=== PATIENT | male | born 1990 | race Hispanic/Latino ===

== ENCOUNTER 2018-09-22 10:39 | Emergency (ER) | payer BC ==
--- NOTE | 2018-09-22 11:39 | EDPHYS ---
Physician Documentation [facility] Name: Roly Retana Age: 27 yrs Sex: Male : 1990 Arrival Date: 09/22/2018 Time: 10:46 Bed 16 Private MD: ED Physician Nikolas Ye HPI: 09/22 11:34 This 27 yrs old Male presents to ER via EMS with complaints of Headache. kb 11:34 The patient complains of pain to the top of head. The patient describes the headache as kb throbbing. Onset: The symptoms/episode began/occurred this morning. Associated signs and symptoms: Pertinent positives: dizziness, Pertinent negatives: altered mental status, fever, malaise, nausea, neck stiffness, paresthesias, Photophobia rash, sinus congestion, sinus tenderness, vision changes, vision loss, vomiting, weakness, vertigo. Severity of symptoms: At its worst the pain was moderate, in the emergency department the pain has resolved, and did so earlier today. Headache History: The patient has had previous headaches and this one is similar to previous episodes. The symptoms are alleviated by sleep, the symptoms are aggravated by nothing. The patient has experienced similar episodes in the past, multiple times. The patient has not recently seen a physician. Pt reports he has headaches about once a month that go away with rest/sleep. Woke up with one this morning at 0600, called into work and told them he would be late. Slept a little longer and went into work at 0900 after symptoms resolved. Reports his boss asked him how he was feeling and he said fine, but they thought he said light-headed so they called the EMS and made him come to the ER because his blood pressure was high. Denies lightheadedness at any point. Reports all symptoms have resolved. . Historical: - Allergies: 10:50 No Known Allergies; sg - Home Meds: 10:50 None [Active]; sg - PMHx: 10:50 Hypertension; sg - PSHx: 10:50 None; sg - Immunization history:: Adult Immunizations up to date. - Social history:: Smoking status: Patient/guardian denies using tobacco. - Ebola Screening: : Patient negative for fever greater than or equal to 101.5 degrees Fahrenheit, and additional compatible Ebola Virus Disease symptoms Patient denies exposure to infectious person Patient denies travel to an Ebola-affected area in the 21 days before illness onset No symptoms or risks identified at this time. ROS: 11:33 Constitutional: Negative for fever, chills, and weight loss, ENT: Negative for injury, kb pain, and discharge, Neck: Negative for injury, pain, and swelling, Cardiovascular: Negative for chest pain, palpitations, and edema, Respiratory: Negative for shortness of breath, cough, wheezing, and pleuritic chest pain, Abdomen/GI: Negative for abdominal pain, nausea, vomiting, diarrhea, and constipation, Back: Negative for injury and pain, MS/Extremity: Negative for injury and deformity, Skin: Negative for injury, rash, and discoloration, Neuro: Negative for headache, weakness, numbness, tingling, and seizure. Exam: 11:33 Constitutional: This is a well developed, well nourished patient who is awake, alert, kb and in no acute distress. Head/Face: Normocephalic, atraumatic. Eyes: Pupils equal round and reactive to light, extra-ocular motions intact. Lids and lashes normal. Conjunctiva and sclera are non-icteric and not injected. Cornea within normal limits. Periorbital areas with no swelling, redness, or edema. ENT: Nares patent. No nasal discharge, no septal abnormalities noted. Tympanic membranes are normal and external auditory canals are clear. Oropharynx with no redness, swelling, or masses, exudates, or evidence of obstruction, uvula midline. Mucous membranes moist. Neck: Trachea midline, no thyromegaly or masses palpated, and no cervical lymphadenopathy. Supple, full range of motion without nuchal rigidity, or vertebral point tenderness. No Meningismus. Chest/axilla: Normal chest wall appearance and motion. Nontender with no deformity. No lesions are appreciated. Cardiovascular: Regular rate and rhythm with a normal S1 and S2. No gallops, murmurs, or rubs. Normal PMI, no JVD. No pulse deficits. Respiratory: Lungs have equal breath sounds bilaterally, clear to auscultation and percussion. No rales, rhonchi or wheezes noted. No increased work of breathing, no retractions or nasal flaring. Abdomen/GI: Soft, non-tender, with normal bowel sounds. No distension or tympany. No guarding or rebound. No evidence of tenderness throughout. Skin: Warm, dry with normal turgor. Normal color with no rashes, no lesions, and no evidence of cellulitis. MS/ Extremity: Pulses equal, no cyanosis. Neurovascular intact. Full, normal range of motion. Neuro: Awake and alert, GCS 15, oriented to person, place, time, and situation. Cranial nerves II-XII grossly intact. Motor strength 5/5 in all extremities. Sensory grossly intact. Cerebellar exam normal. Normal gait. Vital Signs: 10:48 BP 148 / 94; Pulse 69; Resp 17; Temp 97.4; Pulse Ox 98% on R/A; Pain 6/10; sg 11:23 BP 135 / 87; Pulse 64; Resp 18; Pulse Ox 98% on R/A; sg NIH Stroke Scale Scores: 11:33 NIHSS Score: 0 kb Felix Coma Score: 11:31 Eye Response: spontaneous(4). Verbal Response: oriented(5). Motor Response: obeys kb commands(6). Total: 15. MDM: 10:50 Patient medically screened. kb 11:31 Data reviewed: vital signs, nurses notes. Data interpreted: Pulse oximetry: on room air kb is 98 %. Interpretation: normal. Counseling: I had a detailed discussion with the patient and/or guardian regarding: the historical points, exam findings, and any diagnostic results supporting the discharge/admit diagnosis, the need for outpatient follow up, a family practitioner, to return to the emergency department if symptoms worsen or persist or if there are any questions or concerns that arise at home. 11:37 ED course: Educated to keep blood pressure log and follow up with PCP for possible kb hypertension. Also educated to follow up with neurology regarding frequent headaches. . Administered Medications: No medications were administered Disposition: 09/23 06:40 Co-signature as Attending Physician, Nikolas Ye MD I agree with the assessment and kdr plan of care. Disposition: 09/22/18 11:38 Discharged to Home. Impression: Headache. - Condition is Stable. - Discharge Instructions: General Headache Without Cause, [id number]. - Medication Reconciliation Form, Thank You Letter, Antibiotic Education, Prescription Opioid Use, Work release form form. - Follow up: Emergency Department; When: As needed; Reason: Worsening of condition. Follow up: Private Physician; When: 2 - 3 days; Reason: Recheck today's complaints, Continuance of care, Re-evaluation by your physician. NIH Stroke Scale - NIH Stroke Score Date: 09/22/2018 Time: 11:33 Total Score = 0 1a. Level of Consciousness (LOC) - 0(Alert) 1b. Level of Consciousness (LOC) (Year \T\ Age) - 0(Both) 1c. LOC Commands (Open \T\ Closes Eyes/Plasterer Helper) - 0(Both) 2. Best Gaze (Lateral Gaze Paresis) - 0(Normal) 3. Visual Field Loss - 0(No visual loss) 4. Facial Palsy - 0(Normal) 5a. Left Arm: Motor (10-second hold) - 0(No drift) 5b. Right Arm: Motor (10-second hold) - 0(No drift) 6a. Left Leg: Motor (5-second hold - always test supine) - 0(No drift) 6b. Right Leg: Motor (5-second hold - always test supine) - 0(No drift) 7. Limb Ataxia (finger/nose \T\ heel/pickett - test with eyes open) - 0(Absent) 8. Sensory Loss (pinprick arms/legs/face) - 0(Normal) 9. Best Language: Aphasia (description/naming/reading) - 0(No aphasia) 10. Dysarthria (speech clarity - read or repeat words) - 0(Normal) 11. Extinction and Inattention (visual/tactile/auditory/spatial/personal) - 0(No abnormality) Initials: kb Signatures: Jonna Wilson, WANC STAFF INTERNIST OFFICE BASED ONLY-Ckb Theo Toledo RN RN sg Rittger, Kevin, MD MD [facility] Corrections: (The following items were deleted from the chart) 09/22 11:49 11:38 09/22/2018 11:38 Discharged to Home. Impression: Headache. Condition is sg Stable. Forms are Medication Reconciliation Form, Thank You Letter, Antibiotic Education, Prescription Opioid Use. Follow up: Emergency Department; When: As needed; Reason: Worsening of condition. Follow up: Private Physician; When: 2 - 3 days; Reason: Recheck today's complaints, Continuance of care, Re-evaluation by your physician. kb
--- NOTE | 2018-09-22 11:39 | ER ---
Nurse's Notes [facility] Name: Roly Retana Age: 27 yrs Sex: Male : 1990 Arrival Date: 09/22/2018 Time: 10:46 Bed 16 Private MD: Diagnosis: Headache Presentation: 09/22 10:46 Presenting complaint: EMS states: pt reports having a history of headaches, about once sg a month, reports having no diagnosis of neuro problems, reports he thinks that when his blood pressure is elevated the headaches begin, started this morning before work. Denies N/V/D/Fever at this tme. Transition of care: patient was not received from another setting of care. Onset of symptoms was September 22, 2018. Risk Assessment: Do you want to hurt yourself or someone else? Patient reports no desire to harm self or others. Initial Sepsis Screen: Does the patient meet any 2 criteria? No. Patient's initial sepsis screen is negative. Does the patient have a suspected source of infection? No. Patient's initial sepsis screen is negative. Care prior to arrival: Glucose check: 126. 10:46 Method Of Arrival: EMS: [facility] sg 10:46 Acuity: [facility] 3 sg Historical: - Allergies: 10:50 No Known Allergies; sg - Home Meds: 10:50 None [Active]; sg - PMHx: 10:50 Hypertension; sg - PSHx: 10:50 None; sg - Immunization history:: Adult Immunizations up to date. - Social history:: Smoking status: Patient/guardian denies using tobacco. - Ebola Screening: : Patient negative for fever greater than or equal to 101.5 degrees Fahrenheit, and additional compatible Ebola Virus Disease symptoms Patient denies exposure to infectious person Patient denies travel to an Ebola-affected area in the 21 days before illness onset No symptoms or risks identified at this time. Screenin:50 Abuse screen: Denies threats or abuse. Denies injuries from another. Nutritional sg screening: No deficits noted. Tuberculosis screening: No symptoms or risk factors identified. Never had TB. Fall Risk None identified. Assessment: 10:50 General: Appears in no apparent distress. comfortable, well groomed, well developed, sg well nourished, Behavior is calm, cooperative, appropriate for age. Pain: Complains of pain in head Quality of pain is described as aching, throbbing. Neuro: Level of Consciousness is awake, alert, obeys commands, Oriented to person, place, time, situation, Ditch Rider are equal bilaterally Moves all extremities. Full function Gait is steady, Speech is normal, Facial symmetry appears normal, Reports headache. Cardiovascular: Capillary refill is brisk in bilateral fingers Patient's skin is warm and dry. Chest pain is denied. Respiratory: Airway is patent Respiratory effort is even, unlabored, Respiratory pattern is regular, symmetrical. GI: No signs and/or symptoms were reported involving the gastrointestinal system. : No signs and/or symptoms were reported regarding the genitourinary system. EENT: No signs and/or symptoms were reported regarding the EENT system. Derm: Skin is intact, is healthy with good turgor, Skin is dry, Skin is normal, Skin temperature is warm. Musculoskeletal: No signs and/or symptoms reported regarding the musculoskeletal system. Vital Signs: 10:48 BP 148 / 94; Pulse 69; Resp 17; Temp 97.4; Pulse Ox 98% on R/A; Pain 6/10; sg 11:23 BP 135 / 87; Pulse 64; Resp 18; Pulse Ox 98% on R/A; sg Felix Coma Score: 11:31 Eye Response: spontaneous(4). Verbal Response: oriented(5). Motor Response: obeys kb commands(6). Total: 15. NIH Stroke Scale Scores: 11:33 NIHSS Score: 0 ED Course: 10:46 Patient arrived in ED. sg 10:46 Arm band placed on. sg 10:48 Triage completed. sg 10:50 Jonna Wilson FNP-C is [facility]. kb 10:50 Nikolas Ye MD is Attending Physician. kb 10:50 Theo Toledo, HIEU is Primary Nurse. sg 10:50 No provider procedures requiring assistance completed. sg Administered Medications: No medications were administered Outcome: 11:38 Discharge ordered by . kb 11:49 Patient left the ED. NIH Stroke Scale - NIH Stroke Score Date: 09/22/2018 Time: 11:33 Total Score = 0 1a. Level of Consciousness (LOC) - 0(Alert) 1b. Level of Consciousness (LOC) (Year \T\ Age) - 0(Both) 1c. LOC Commands (Open \T\ Closes Eyes/Rice Drier) - 0(Both) 2. Best Gaze (Lateral Gaze Paresis) - 0(Normal) 3. Visual Field Loss - 0(No visual loss) 4. Facial Palsy - 0(Normal) 5a. Left Arm: Motor (10-second hold) - 0(No drift) 5b. Right Arm: Motor (10-second hold) - 0(No drift) 6a. Left Leg: Motor (5-second hold - always test supine) - 0(No drift) 6b. Right Leg: Motor (5-second hold - always test supine) - 0(No drift) 7. Limb Ataxia (finger/nose \T\ heel/pickett - test with eyes open) - 0(Absent) 8. Sensory Loss (pinprick arms/legs/face) - 0(Normal) 9. Best Language: Aphasia (description/naming/reading) - 0(No aphasia) 10. Dysarthria (speech clarity - read or repeat words) - 0(Normal) 11. Extinction and Inattention (visual/tactile/auditory/spatial/personal) - 0(No abnormality) Initials: kb Signatures: Jonna Wilson, STRAIGHT KNIFE CUTTER MACHINE-C STRAIGHT KNIFE CUTTER MACHINE-Ckb Theo Toledo, RN RN sg
== END 2018-09-22 11:49 | disposition home or self-care (01) ==
LOC: ER 10:39
DX: R51 Headache (principal); R42 Dizziness and giddiness; I10 Essential (primary) hypertension
CPT/HCPCS: 99282